=== PATIENT | female | born 1990 | race Caucasian/White ===

== ENCOUNTER → 2024-02-12 | Outpatient (CLI) | payer OTHER ==
[2024-02-12 15:59] LABS: ALKALINE PHOSPHATASE 79 U/L (46-116); ALT/SGPT 45 U/L (7.0-40); AST/SGOT 29 U/L (<34); BILIRUBIN,TOTAL 0.3 MG/DL (0.3-1.2); BLOOD UREA NITROGEN 8 MG/DL (9-23); CALCIUM LEVEL 9.2 MG/DL (8.5-10.1); CARBON DIOXIDE LEVEL 26 MMOL/L (20-31); CHLORIDE LEVEL 107 MMOL/L (98-107); CHOLESTEROL LEVEL 164 MG/DL (<200); CHOLESTEROL RISK RATIO 2.76 (<5); CREATININE FOR GFR 0.68 MG/DL (0.55-1.30); GLOMERULAR FILTRATION RATE > 60.0 (>60); GLUCOSE, FASTING 96 MG/DL (60-100); HDL CHOLESTEROL 59.3 MG/DL (>40); LDL CHOLESTEROL 73.5 MG/DL (<100); NON-HDL-C 104.7 MG/DL; POTASSIUM SERUM 4.6 MMOL/L (3.5-5.1); SODIUM LEVEL 139 MMOL/L (136-145); TRIGLYCERIDES LEVEL 156 MG/DL (<150)
[2024-02-12 16:01] LABS: THYROID STIMULATING HORMONE 0.281 uIU/ML (0.55-4.78)
[2024-02-12 16:19] LABS: HEMOGLOBIN A1c 4.7 % (4.0-6.0)
[2024-02-13 10:33] LABS: FREE T4 0.92 NG/DL (0.89-1.76)
[2024-02-13 10:44] LABS: TOTAL T3 104.6 NG/DL (60.0-181.0)
== END ==
LOC: M PLALAB 13:59
PROVIDERS: ATTEND Family Medicine
DX: R63.5 Abnormal weight gain (principal)

== ENCOUNTER → 2024-05-13 | Outpatient (CLI) | payer OTHER ==
[~2024-05-13] MED LIST: ECOT81TA5 PO; OLAN1TAB16 PO; OLAN1TAB20 PO; TRAZ-252 PO; ZYPR10TA PO; ZYPR5TAB2 PO
[2024-05-13 18:36] LABS: HEMATOCRIT 41.2 % (36.0-47.0); MEAN CORPUSCULAR HEMOGLOBIN 30.9 pg (27.0-33.0); MEAN CORPUSCULAR VOLUME 90.9 fl (80.0-96.0); PLATELET COUNT, AUTOMATED 285 10^3/uL (150-450); RED BLOOD COUNT 4.53 10^6/uL (4.00-5.40); WHITE BLOOD COUNT 6.9 10^3/uL (4.0-10.0)
[2024-05-13 18:46] LABS: THYROXINE (T4) 8.1 UG/DL (4.5-10.9)
[2024-05-13 18:47] LABS: FREE THYROXINE INDEX 2.5 % (1.3-4.8); T UPTAKE 31.4 % (22.5-37.0)
[2024-05-13 18:48] LABS: FERRITIN 43.1 NG/ML (7.3-270.7); PROLACTIN 12.05 NG/ML
[2024-05-13 19:05] LABS: HEPATITIS B SURFACE ANTIGEN NEGATIVE (NEGATIVE)
[2024-05-13 19:18] LABS: HIV 1&2 SCREEN NEGATIVE (NEGATIVE)
[2024-05-13 19:26] LABS: HEPATITIS C VIRUS ABY INDEX < 0.02 INDEX (<0.8)
[2024-05-13 21:12] LABS: GC DNA AMPLIFICATION NEGATIVE (NEGATIVE)
== END ==
LOC: M PLALAB 15:24
PROVIDERS: ATTEND Family Medicine
DX: L65.9 Nonscarring hair loss, unspecified (principal); Z11.3 Encounter for screening for infections with a predominantly sexual mode of transmission; R79.89 Other specified abnormal findings of blood chemistry; Z86.59 Personal history of other mental and behavioral disorders